=== PATIENT | male | born 1970 | race Caucasian/White ===

== ENCOUNTER 2023-03-08 14:45 | Outpatient (CLI) | payer BC, SELFPAY ==
[2023-03-08 23:03] LABS: Chlamydia DNA Amplified* NOT DETECTED (No Detected); GC DNA Amplified* NOT DETECTED (No Detected)
== END 2023-03-08 14:46 | disposition home or self-care (01) ==
PROVIDERS: PCP Physician Assistant Medical; Visit Provider Physician Assistant
DX: R35.0 Frequency of micturition (principal); N50.819 Testicular pain, unspecified
CPT/HCPCS: 84153; 87491; 87591

== ENCOUNTER 2023-12-05 11:18 | Outpatient (CLI) | payer BC, SELFPAY | END 2023-12-05 11:19 | disposition home or self-care (01) | PROVIDERS: PCP Physician Assistant Medical; Visit Provider Physician Assistant Medical | DX: E78.5 Hyperlipidemia, unspecified (principal) | CPT/HCPCS: 80061; 84450; 84460 ==

== ENCOUNTER 2023-12-15 06:30 | Outpatient (CLI) | payer BC, SELFPAY ==
--- NOTE | 2023-12-15 07:41 | W.ANESCHARGE ---
Anesthesia Charges Start Date/Time Anesthesia Start Date: 12/15/23 Anesthesia Start Time: 07:13 Stop Date/Time Anesthesia Stop Date: 12/15/23 Anesthesia Stop Time: 07:38
--- NOTE | 2023-12-15 10:23 | W.ANESCHARGE ---
Anesthesia Charges Start Date/Time Anesthesia Start Date: 12/15/23 Anesthesia Start Time: 07:13 Stop Date/Time Anesthesia Stop Date: 12/15/23 Anesthesia Stop Time: 07:38
== END 2023-12-15 06:31 | disposition home or self-care (01) ==
LOC: OP CLINIC 06:30
PROVIDERS: PCP Physician Assistant Medical; Visit Provider Internal Medicine
DX: K63.5 Polyp of colon (principal); Z86.010 Personal history of colon polyps
CPT/HCPCS: 00811; 45380; 45385; 88305; J2704

== ENCOUNTER 2024-03-25 14:19 | Outpatient (CLI) | payer BC, SELFPAY | END 2024-03-25 14:20 | disposition home or self-care (01) | LOC: FRMREF 14:20 | PROVIDERS: PCP Physician Assistant Medical; Visit Provider Physician Assistant Medical | DX: Z01.84 Encounter for antibody response examination (principal) | CPT/HCPCS: 86787 ==

== ENCOUNTER 2025-04-14 10:57 | Outpatient (CLI) | payer BC, SELFPAY | END 2025-04-14 10:58 | disposition home or self-care (01) | LOC: NFLDREF 04-27 04:20 | PROVIDERS: PCP Physician Assistant Medical; Referring Provider Physician Assistant Medical; Visit Provider Physician Assistant Medical | DX: E78.2 Mixed hyperlipidemia (principal) | CPT/HCPCS: 80053; 80061; 84443; G0103 ==

== ENCOUNTER 2025-05-05 11:34 | Outpatient (CLI) | payer BC, SELFPAY ==
--- NOTE | 2025-05-05 12:43 | P.ANES_ITS ---
Anesthesia Charges Start Date/Time Anesthesia Start Date: 05/05/25 Anesthesia Start Time: 12:23 Stop Date/Time Anesthesia Stop Date: 05/05/25 Anesthesia Stop Time: 12:41 Coding CPT Codes CPT Codes: ANES UPR GI NDSC PX NOS - 18911 ([id number]) QK - SUPERVISOR FLOOR ASSEMBLY 2-4 CNCRNT ANES PROC, QX - PRESIDENT AND CHIEF EXECUTIVE OFFICER SVC W/ MD MED DIRECTION, P3 - PATIENT W/SEVERE SYS DISEASE
--- NOTE | 2025-05-05 12:43 | W.ANESCHARGE ---
Anesthesia Charges Start Date/Time Anesthesia Start Date: 05/05/25 Anesthesia Start Time: 12:23 Stop Date/Time Anesthesia Stop Date: 05/05/25 Anesthesia Stop Time: 12:41 Coding CPT Codes CPT Codes: ANES UPR GI NDSC PX NOS - 10569 ([id number]) QK - BONE CHAR KILN OPERATOR 2-4 CNCRNT ANES PROC, QX - SUPPORT TECHNICIAN SVC W/ MD MED DIRECTION, P3 - PATIENT W/SEVERE SYS DISEASE
--- NOTE | 2025-05-05 12:45 | P.ANES_ITS ---
Anesthesia Charges Start Date/Time Anesthesia Start Date: 05/05/25 Anesthesia Start Time: 12:23 Stop Date/Time Anesthesia Stop Date: 05/05/25 Anesthesia Stop Time: 12:41 Coding CPT Codes CPT Codes: ANES UPR GI NDSC PX NOS - 72509 ([id number]) P3 - PATIENT W/SEVERE SYS DISEASE, QK - DISBURSING AGENT 2-4 CNCRNT ANES PROC, QX - SENIOR WEB DEVELOPER SVC W/ MD MED DIRECTION
--- NOTE | 2025-05-05 12:45 | W.ANESCHARGE ---
Anesthesia Charges Start Date/Time Anesthesia Start Date: 05/05/25 Anesthesia Start Time: 12:23 Stop Date/Time Anesthesia Stop Date: 05/05/25 Anesthesia Stop Time: 12:41 Coding CPT Codes CPT Codes: ANES UPR GI NDSC PX NOS - 89037 ([id number]) P3 - PATIENT W/SEVERE SYS DISEASE, QK - SPECIAL DELIVERY CLERK 2-4 CNCRNT ANES PROC, QX - FEATHER CURLING MACHINE OPERATOR SVC W/ MD MED DIRECTION
== END 2025-05-05 11:35 | disposition home or self-care (01) ==
LOC: OP CLINIC 11:35
PROVIDERS: PCP Physician Assistant Medical; Visit Provider Internal Medicine
DX: R10.13 Epigastric pain (principal); K21.9 Gastro-esophageal reflux disease without esophagitis
CPT/HCPCS: 00731; 43239; 88305; J2704; J3490